=== PATIENT | male | born 1970 | race Two or more races ===

== ENCOUNTER 2024-01-03 16:26 | Emergency (ER) | payer OTHER ==
[~2024-01-03] VITALS: Ht 185.4 cm; Wt 122.5 kg
[2024-01-03 16:56] VITALS: BP 148/78; TEMP 98.6
[2024-01-03] MEDS ORDERED: LEVE500T9 PO (17:34)
[2024-01-03] MEDS ORDERED: LISI10TA29 PO (17:34)
[2024-01-03 17:37] VITALS: O2SAT 97
== END 2024-01-03 17:37 | disposition home or self-care (01) ==
LOC: ER 16:26
DX: I10 Essential (primary) hypertension (principal); R56.9 Unspecified convulsions; Z60.2 Problems related to living alone

== ENCOUNTER 2024-11-23 18:41 | Emergency (ER) | payer OTHER ==
[~2024-11-23] VITALS: Ht 185.4 cm; Wt 117.9 kg
[~2024-11-23 18:41] MED LIST: LEVE500T9 PO; LISI10TA29 PO
[2024-11-23 19:21] LABS: BASOPHILS # (AUTO) 0.1 K/uL (0.0-0.2); BASOPHILS % (AUTO) 0.7 % (0.0-2.0); EOSINOPHILS # (AUTO) 0.3 K/uL (0.0-0.7); EOSINOPHILS % (AUTO) 3.4 % (0.0-6.0); HEMATOCRIT 40 % (39-51); HEMOGLOBIN 13.8 g/dL (13.5-17.5); LYMPHOCYTES # (AUTO) 2.1 K/uL (0.8-4.8); LYMPHOCYTES % (AUTO) 28.1 % (20.0-44.0); MEAN CORPUSCULAR HEMOGLOBIN 31 PG (26.0-33.0); MEAN CORPUSCULAR HGB CONC 35 g/dl (31.0-36.0); MEAN CORPUSCULAR VOLUME 90 fL (80-96); MONOCYTES # (AUTO) 0.6 K/uL (0.1-1.30); MONOCYTES % (AUTO) 7.7 % (2.0-12.0); NEUTROPHILS # (AUTO) 4.5 K/uL (1.8-8.9); NEUTROPHILS % (AUTO) 60.1 % (43.0-81.0); PLATELET COUNT (AUTO) 174 K/uL (150-450); RED BLOOD CELL COUNT(AUTO) 4.44 MIL/uL (4.5-6.0); WHITE BLOOD COUNT (AUTO) 7.6 K/uL (4.3-11.0)
[2024-11-23 19:43] LABS: CALCIUM, SERUM 8.2 mg/dL (8.5-10.1); CARBON DIOXIDE 26 mmol/L (21-32); CHLORIDE 103 mmol/L (98-107); CREATININE 1.3 mg/dL (0.6-1.3); GLUCOSE 103 mg/dL (74-106); POTASSIUM 3.9 mmol/L (3.5-5.1); SODIUM SERUM 135 mmol/L (136-145); UREA NITROGEN, BLOOD 36 mg/dL (7-18)
[2024-11-23 19:48] LABS: ALANINE AMINOTRANSFERASE 192 U/L (12-78); ALBUMIN 3.9 g/dL (3.4-5.0); ALCOHOL, BLOOD < 3 mg/dL (0-10); ALKALINE PHOSPHATASE 57 U/L (46-116); ASPARTATE AMINOTRANSFERASE 398 U/L (15-37); BILIRUBIN,DIRECT 0.2 mg/dL (0.0-0.2); BILIRUBIN,TOTAL 0.5 mg/dL (0.2-1.0); SALICYLATE 2.9 mg/dL (2.8-20.0); TOTAL PROTEIN, SERUM 7.7 g/dL (6.4-8.2)
[2024-11-23 19:49] LABS: ACETAMINOPHEN <10 ug/ml (10-30)
[2024-11-23 20:46] LABS: BARBITURATE, URINE NEGATIVE (NEGATIVE); BENZODIAZEPINE, URINE NEGATIVE (NEGATIVE); CANNABINOID, URINE NEGATIVE (NEGATIVE); COCCAINE, URINE NEGATIVE (NEGATIVE); OPIATE, URINE NEGATIVE (NEGATIVE); PHENCYCLIDINE SCREEN,URINE NEGATIVE (NEGATIVE)
[2024-11-23 20:47] LABS: APPEARANCE,URINE CLEAR (CLEAR); BILIRUBIN,URINE NEGATIVE (NEGATIVE); BLOOD, URINE 1+ Ery/uL (NEGATIVE); COLOR,URINE YELLOW (YELLOW); KETONES,URINE 1+ mg/dL (NEGATIVE); LEUKOCYTE ESTERASE ,URINE NEGATIVE (NEGATIVE); NITRITE, URINE NEGATIVE (NEGATIVE); PROTEIN,URINE TRACE mg/dl (NEGATIVE); UGLUCOSE NEGATIVE (NEGATIVE); UROBILINOGEN,URINE 0.2 EU/dL (0.2)
[2024-11-23 20:56] LABS: AMPHETAMINE, URINE POSITIVE (NEGATIVE)
[2024-11-23 21:00] LABS: WBC,URINE 0-2 /HPF (0-3)
[2024-11-23 21:01] LABS: ADD URINE CULTURE NO; BACTERIA,URINE None seen /HPF (None Seen); URIC ACID CRYSTALS,URINE Few /HPF (None Seen)
[2024-11-24 00:13] VITALS: BP 125/82; TEMP 98.2; O2SAT 98
== END 2024-11-24 00:13 ==
LOC: ER 18:46
DX: F23 Brief psychotic disorder (principal); F15.10 Other stimulant abuse, uncomplicated; E86.0 Dehydration; I10 Essential (primary) hypertension; F22 Delusional disorders; Z79.899 Other long term (current) drug therapy; Z20.822 Contact with and (suspected) exposure to COVID-19; Z60.2 Problems related to living alone
CPT/HCPCS: 36415; 80048-TC; 80076-TC; 81001; 85025-TC; G0480

== ENCOUNTER 2024-12-22 01:06 | Emergency (ER) | payer MEDICAID, OTHER ==
[~2024-12-22] VITALS: Ht 185.4 cm; Wt 122.5 kg
[2024-12-22] MEDS: HYDROCODONE/APAP 7.5/325MG 1 EACH TABLET PO ONE (01:32)
[2024-12-22] MEDS: ASPIRIN 81 MG TAB.CHEW PO ONE (01:33)
[2024-12-22] MEDS ORDERED: ASPIRIN 81 MG TAB.CHEW ONE (01:33)
[2024-12-22] MEDS ORDERED: HYDROCODONE/APAP 10/325MG TABLET ONE (01:42)
[2024-12-22] MEDS: HYDROCODONE/APAP 10/325MG TABLET PO ONE (01:43)
[2024-12-22] MEDS ORDERED: ONDANSETRON HCL/PF 4 MG/2 ML VIAL ONE (01:56)
[2024-12-22] MEDS: ONDANSETRON HCL/PF 4 MG/2 ML VIAL IV ONE (01:56)
[2024-12-22 01:58] LABS: CALCIUM, SERUM 8.6 mg/dL (8.5-10.1); CARBON DIOXIDE 26 mmol/L (21-32); CHLORIDE 100 mmol/L (98-107); CREATININE 0.9 mg/dL (0.6-1.3); GLUCOSE 143 mg/dL (74-106); POTASSIUM 4.1 mmol/L (3.5-5.1); SODIUM SERUM 136 mmol/L (136-145); UREA NITROGEN, BLOOD 10 mg/dL (7-18)
[2024-12-22 02:03] LABS: BASOPHILS # (AUTO) 0.1 K/uL (0.0-0.2); BASOPHILS % (AUTO) 0.7 % (0.0-2.0); EOSINOPHILS # (AUTO) 0.1 K/uL (0.0-0.7); HEMATOCRIT 41 % (39-51); HEMOGLOBIN 13.8 g/dL (13.5-17.5); LYMPHOCYTES # (AUTO) 1.7 K/uL (0.8-4.8); LYMPHOCYTES % (AUTO) 20.3 % (20.0-44.0); MEAN CORPUSCULAR HEMOGLOBIN 31 PG (26.0-33.0); MEAN CORPUSCULAR HGB CONC 34 g/dl (31.0-36.0); MEAN CORPUSCULAR VOLUME 91 fL (80-96); MONOCYTES # (AUTO) 0.5 K/uL (0.1-1.30); MONOCYTES % (AUTO) 5.5 % (2.0-12.0); NEUTROPHILS # (AUTO) 6.1 K/uL (1.8-8.9); NEUTROPHILS % (AUTO) 72.5 % (43.0-81.0); PLATELET COUNT (AUTO) 188 K/uL (150-450); RED BLOOD CELL COUNT(AUTO) 4.45 MIL/uL (4.5-6.0); RED CELL DISTRIBUTION WIDTH 14.4 % (11.5-15.0); WHITE BLOOD COUNT (AUTO) 8.5 K/uL (4.3-11.0)
[2024-12-22 02:19] LABS: ALANINE AMINOTRANSFERASE 83 U/L (12-78); ALBUMIN 3.5 g/dL (3.4-5.0); ALKALINE PHOSPHATASE 74 U/L (46-116); ASPARTATE AMINOTRANSFERASE 54 U/L (15-37); BILIRUBIN,DIRECT 0.1 mg/dL (0.0-0.2); BILIRUBIN,TOTAL 0.5 mg/dL (0.2-1.0); TOTAL PROTEIN, SERUM 7.5 g/dL (6.4-8.2)
[2024-12-22] MEDS ORDERED: IOHEXOL-350 100 ML VIAL IV ONE (03:36)
[2024-12-22] MEDS ORDERED: LEVOFLOXACIN 750 MG /D5W 150ML 150 ML IV ONE (05:42)
[2024-12-22] MEDS ORDERED: HYDR-4209 PO (05:45)
[2024-12-22] MEDS ORDERED: LEVO500T90 PO (05:45)
[2024-12-22] MEDS: LEVOFLOXACIN 750 MG /D5W 150ML PIGGYBACK IV ONE (05:51)
[2024-12-22 07:40] VITALS: BP 142/90; TEMP 98.6; O2SAT 99
== END 2024-12-22 07:41 | disposition home or self-care (01) ==
LOC: ER 01:08
DX: R07.89 Other chest pain (principal); R05.9 Cough, unspecified; F17.210 Nicotine dependence, cigarettes, uncomplicated; J18.9 Pneumonia, unspecified organism; I10 Essential (primary) hypertension; Z79.899 Other long term (current) drug therapy; Z20.822 Contact with and (suspected) exposure to COVID-19
CPT/HCPCS: 99285; 71275; 96365; 71045; 96375; 99406; 87426; 93005; 74022; 74176; 85025; 80048; 87804; 80076; 85378; 36415; 84484 ×2; J2405; J1956; Q9967